=== PATIENT | male | born 1945 | race Caucasian/White ===

== ENCOUNTER → 2020-12-17 | Outpatient (CLI) | payer MEDICARE, OTHER ==
[~2020-12-17] MED LIST: ALBUTEROL2.5 MG/3 M INH; AMIODARONE HCL200 MG PO; BACTRIM DS TAB1 EACH PO; CLARITIN10 M2 PO; COZAAR25 MG PO; DESYREL 50 MG T50 MG PO; ECOTRIN81 MG PO; ELIQUIS2.5 MG PO; FLONASE 0.05% N16 GM; GLUCOPHAGE500 MG PO; GLYXAMBI 10 MG1 EACH PO; LASIX20 MG PO; LOPRESSOR 25 MG25 MG PO; PROVENTIL HFA6.7 GM INH; ROXICODONE5 MG PO; SENOKOT-S TABL1 EACH PO; TRADJENTA5 MG PO; VISTARIL25 MG PO; ZOCOR20 MG PO
== END ==
LOC: EXRD 12:05
DX: N17.9 Acute kidney failure, unspecified (principal)
CPT/HCPCS: 76775

== ENCOUNTER 2020-12-22 11:51 | Emergency (ER) | payer MEDICARE, OTHER ==
[~2020-12-22 11:51] MED LIST changes: -BACTRIM DS TAB1 EACH PO
[2020-12-22] MEDS ORDERED: BACTRIM DS TAB1 EACH PO (13:08)
== END 2020-12-22 14:15 | disposition home or self-care (01) ==
LOC: ER1 11:51
DX: L02.214 Cutaneous abscess of groin (principal); M54.5 Low back pain
CPT/HCPCS: 87070; 87205; 99283

== ENCOUNTER 2021-01-17 14:55 | Emergency (ER) | payer MEDICARE, OTHER ==
[~2021-01-17 14:55] MED LIST changes: +BACTRIM DS TAB1 EACH PO
== END 2021-01-17 16:32 | disposition home or self-care (01) ==
LOC: ER1 14:55
DX: M19.042 Primary osteoarthritis, left hand (principal); E11.9 Type 2 diabetes mellitus without complications; I10 Essential (primary) hypertension; I25.10 Atherosclerotic heart disease of native coronary artery without angina pectoris; Z95.1 Presence of aortocoronary bypass graft
CPT/HCPCS: 73130; 84550; 99283

== ENCOUNTER → 2021-06-09 | Outpatient (CLI) | payer MEDICARE, OTHER ==
[~2021-06-09] MED LIST changes: +AUGMENTIN 875-1 EACH PO; +LOPRESSOR50 MG PO; +ZITHROMAX250 MG PO
== END ==
LOC: HEART 5 04-16 13:30
DX: Z48.812 Encounter for surgical aftercare following surgery on the circulatory system (principal); Z95.2 Presence of prosthetic heart valve; I07.1 Rheumatic tricuspid insufficiency; I27.20 Pulmonary hypertension, unspecified
CPT/HCPCS: 93306

== ENCOUNTER 2021-06-24 22:48 | Emergency (ER) | payer MEDICARE, OTHER ==
[~2021-06-24 22:48] MED LIST changes: -AUGMENTIN 875-1 EACH PO; -LOPRESSOR50 MG PO; -ZITHROMAX250 MG PO
[2021-06-24 23:50] LABS: RED BLOOD COUNT 4.23 M/UL (4.20-5.50); WHITE BLOOD COUNT 9.2 K/UL (4.5-11.0)
[2021-06-25 00:08] LABS: BUN/CREATININE RATIO 15 (0-10)
[2021-06-25] MEDS ORDERED: AUGMENTIN 875-1 EACH PO (04:53)
[2021-06-25] MEDS ORDERED: ZITHROMAX250 MG PO (04:53)
== END 2021-06-25 05:27 | disposition home or self-care (01) ==
LOC: ER1 22:48
PROVIDERS: Physician Assistant
DX: J18.9 Pneumonia, unspecified organism (principal); E78.5 Hyperlipidemia, unspecified; I10 Essential (primary) hypertension; Z95.1 Presence of aortocoronary bypass graft; Z20.822 Contact with and (suspected) exposure to COVID-19
CPT/HCPCS: 0240U; 71045; 80053; 82550; 82553; 83735; 83874; 83880; 84484; 85025; 93005; 96374; 99285; J0696; Q9967

== ENCOUNTER 2021-07-06 11:26 | Emergency (ER) | payer MEDICARE, OTHER ==
[~2021-07-06 11:26] MED LIST changes: +AUGMENTIN 875-1 EACH PO; +ZITHROMAX250 MG PO
[2021-07-06 13:00] LABS: RED BLOOD COUNT 4.51 M/UL (4.20-5.50); WHITE BLOOD COUNT 6.9 K/UL (4.5-11.0)
[2021-07-06 13:13] LABS: BUN/CREATININE RATIO 15 (0-10)
[2021-07-06] MEDS ORDERED: LOPRESSOR50 MG PO (18:49)
== END 2021-07-06 19:35 | disposition home or self-care (01) ==
LOC: ER1 11:26
PROVIDERS: Physician Assistant
DX: R31.0 Gross hematuria (principal); I48.91 Unspecified atrial fibrillation; E11.9 Type 2 diabetes mellitus without complications; I10 Essential (primary) hypertension; Z95.1 Presence of aortocoronary bypass graft; Z79.01 Long term (current) use of anticoagulants; Z87.891 Personal history of nicotine dependence
CPT/HCPCS: 80053; 81001; 85025; 85610; 93005; 96374; 96376; 99284

== ENCOUNTER → 2021-07-21 | Outpatient (CLI) | payer MEDICARE, OTHER ==
[~2021-07-21] MED LIST changes: +LOPRESSOR50 MG PO
== END ==
LOC: EXRD 07:44
DX: E04.9 Nontoxic goiter, unspecified (principal)
CPT/HCPCS: 76536

== ENCOUNTER → 2021-09-16 | Outpatient (CLI) | payer MEDICARE, OTHER | LOC: US 13:14 | DX: N28.1 Cyst of kidney, acquired (principal) ==

== ENCOUNTER → 2021-12-24 | Outpatient (CLI) | payer MEDICARE, OTHER | LOC: LAB 10:53 | DX: I51.3 Intracardiac thrombosis, not elsewhere classified (principal); D68.59 Other primary thrombophilia; Z79.01 Long term (current) use of anticoagulants | CPT/HCPCS: 36415; 85610 ==

== ENCOUNTER → 2022-02-12 | Outpatient (CLI) | payer MEDICARE, OTHER | LOC: US 12:57 | DX: N28.1 Cyst of kidney, acquired (principal) ==

== ENCOUNTER 2022-07-30 09:15 | Inpatient (IN) | payer MEDICARE, OTHER ==
[~2022-07-30] VITALS: Ht 175.3 cm; Wt 86.2 kg
[~2022-07-30 09:15] MED LIST changes: -LOPRESSOR 25 MG25 MG PO; +LOPRESSOR 50 MG50 MG PO; +METFORMIN HCL500 M2 PO
[2022-07-30 10:06] LABS: HEMOGLOBIN 13.7 gm/dl (14.0-17.5); RED BLOOD COUNT 4.46 M/UL (4.20-5.50); WHITE BLOOD COUNT 9.4 K/UL (4.5-11.0)
[2022-07-30] MEDS ORDERED: WARFARIN SODIUM5 MG PO (15:07)
[2022-07-30] MEDS ORDERED: JARDIANCE25 MG PO (15:11)
[2022-07-30] MEDS ORDERED: GLUCOTROL XL2.5 MG PO (15:12)
[2022-07-30] MEDS ORDERED: LASIX TAB 20 MG20 MG PO (15:19)
[2022-07-30] MEDS ORDERED: TRULICITY3 MG/0.5 M SQ (17:00)
[2022-07-31 04:29] LABS: HEMOGLOBIN 12.2 gm/dl (14.0-17.5); RED BLOOD COUNT 4.05 M/UL (4.20-5.50)
[2022-07-31 04:36] LABS: WHITE BLOOD COUNT 5.4 K/UL (4.5-11.0)
[2022-08-01 07:57] LABS: BUN/CREATININE RATIO 27 (0-10)
[2022-08-02 03:50] LABS: HEMOGLOBIN 13.5 gm/dl (14.0-17.5); RED BLOOD COUNT 4.42 M/UL (4.20-5.50); WHITE BLOOD COUNT 6.1 K/UL (4.5-11.0)
[2022-08-03] MEDS ORDERED: AMIODARONE HCL200 MG PO (08:26)
[2022-08-03] MEDS ORDERED: FUROSEMIDE20 MG PO (08:26)
== END 2022-08-03 17:50 | disposition home or self-care (01) | DRG 291 ==
LOC: ER1 09:15 → CDU 11:21 → PROG CARE 11:21
PROVIDERS: Emergency Medicine; Family Medicine; Physician Assistant; ADMIT Internal Medicine
PROC: B24BZZZ Ultrasonography of Heart with Aorta (ICD-10-PCS; principal; 2022-07-30)
DX: I13.0 Hypertensive heart and chronic kidney disease with heart failure and stage 1 through stage 4 chronic kidney disease, or unspecified chronic kidney disease (principal); I50.23 Acute on chronic systolic (congestive) heart failure; I48.92 Unspecified atrial flutter; E87.2 Acidosis; Z68.41 Body mass index [BMI] 40.0-44.9, adult; E78.5 Hyperlipidemia, unspecified; R74.01 Elevation of levels of liver transaminase levels; H91.8X3 Other specified hearing loss, bilateral; E66.01 Morbid (severe) obesity due to excess calories; I48.0 Paroxysmal atrial fibrillation; I42.0 Dilated cardiomyopathy; I07.1 Rheumatic tricuspid insufficiency; I27.20 Pulmonary hypertension, unspecified; N18.30 Chronic kidney disease, stage 3 unspecified; E11.22 Type 2 diabetes mellitus with diabetic chronic kidney disease; Z79.01 Long term (current) use of anticoagulants; Z95.2 Presence of prosthetic heart valve; Z79.82 Long term (current) use of aspirin; Z98.42 Cataract extraction status, left eye; Z98.41 Cataract extraction status, right eye; Z80.0 Family history of malignant neoplasm of digestive organs; Z82.3 Family history of stroke; Z82.49 Family history of ischemic heart disease and other diseases of the circulatory system; Z87.891 Personal history of nicotine dependence; Z83.3 Family history of diabetes mellitus
CPT/HCPCS: ECHO; 36415; 71045; 80048; 80053; 82550; 82553; 82962; 83605; 83735; 83880; 84439; 84443; 84484; 85025; 85610; 85730; 87040; 93005; 93306; 96374; 96375; 96376; 97161; 99285; J1160; J1650; J1940; U0002